=== PATIENT | female | born 1965 | race Caucasian/White ===

== ENCOUNTER → 2021-02-25 | Day surgery (SDC) | payer OTHER | LOC: MAMMO 07:07 | PROVIDERS: ATTEND Nurse Practitioner Family | PROC: 0H9T3ZX Drainage of Right Breast, Percutaneous Approach, Diagnostic (ICD-10-PCS; principal; 2021-02-25) | DX: D05.11 Intraductal carcinoma in situ of right breast (principal) | CPT/HCPCS: 19081; 76098; 88305; 88341; 88342 ==

== ENCOUNTER 2021-04-24 13:55 | Outpatient (CLI) | payer OTHER | END 2021-04-24 13:56 | disposition home or self-care (01) | LOC: ULT 13:55 | PROVIDERS: ATTEND Internal Medicine Hematology & Oncology | DX: Z51.11 Encounter for antineoplastic chemotherapy (principal); C50.811 Malignant neoplasm of overlapping sites of right female breast; Z79.899 Other long term (current) drug therapy | CPT/HCPCS: 93306 ==

== ENCOUNTER 2021-07-30 12:55 | Outpatient (CLI) | payer OTHER | END 2021-07-30 12:56 | disposition home or self-care (01) | LOC: ULT 12:55 | PROVIDERS: ATTEND Internal Medicine Hematology & Oncology | DX: Z51.11 Encounter for antineoplastic chemotherapy (principal); C50.811 Malignant neoplasm of overlapping sites of right female breast; Z79.899 Other long term (current) drug therapy | CPT/HCPCS: 93306 ==